=== PATIENT | female | born 1990 | race Native Hawaiian/Other Pacific Islander ===

== ENCOUNTER 2016-06-18 09:22 | Emergency (ER) | payer OTHER ==
[2016-06-18 09:26] VITALS: BMI 16.0
[2016-06-18 09:27] VITALS: BP 111/71; PULSE 90; RESP 16; TEMP 98.6; O2SAT 98
[2016-06-18] MEDS ORDERED: Tetracaine 0.5% Ophth (OR ONLY) OD ONE (09:55)
[2016-06-18] MEDS ORDERED: Fluorescein 1 mg Ophthalmic Strip OD ONE (09:55)
[2016-06-18] MEDS ORDERED: Tetracaine 0.5% Ophth (OR ONLY) ONE (10:02)
[2016-06-18] MEDS ORDERED: Fluorescein 1 mg Ophthalmic Strip ONE (10:02)
--- NOTE | 2016-06-18 10:21 | C.PDOC ---
History Of Present Illness 25 yr old female presents to the ER with complaints of bilateral eye irritation and redness since morning. Patient reports she wears contact lens. Patient states last night when she got home she was unable to get her contact lens out, flushed them with saline and water and went to sleep. Patient states when she woke up this morning she had pain to bilateral eyes. Patient denies vision changes or headache. Time Seen by Provider: 06/18/16 09:28 Chief Complaint (Nursing): ENT Problem History Per: Patient History/Exam Limitations: no limitations Onset/Duration Of Symptoms: Sudden Onset (since morning) Wears Contact Lens?: Yes Associated Symptoms: Pain Past Medical History Reviewed: Historical Data, Nursing Documentation, Vital Signs Vital Signs: Last Vital Signs Temp 98.6 F 06/18/16 09:26 Pulse 90 06/18/16 09:26 Resp 16 06/18/16 09:26 BP 111/71 06/18/16 09:26 Pulse Ox 98 06/18/16 10:23 Family History: States: No Known Family Hx - Social History Hx Alcohol Use: Yes Hx Substance Use: No - Immunization History Hx Tetanus Toxoid Vaccination: No Hx Influenza Vaccination: No (04/2015) Hx Pneumococcal Vaccination: No Review Of Systems Except As Marked, All Systems Reviewed And Found Negative. Eyes: Positive for: Pain (bilateral eyes ), Redness (bilateral eyes). Negative for: Vision Change Neurological: Negative for: Headache Physical Exam - Physical Exam Appears: Non-toxic, No Acute Distress Skin: Normal Color, Dry, No Rash Head: Atraumatic, Normacephalic Eye(s): bilateral: Other (No contact lens visulized. Scleral and conjunctiva are injected. Clear dischagre from irritation. ) Nose: Normal Oral Mucosa: Moist Chest: Symmetrical, No Tenderness Cardiovascular: Rhythm Regular, No Murmur Respiratory: Normal Breath Sounds, No Rales, No Rhonchi, No Stridor, No Wheezing Extremity: Normal ROM, No Swelling Neurological/Psych: Oriented x3, Normal Speech, Normal Motor ED Course And Treatment O2 Sat by Pulse Oximetry: 98 Disposition Counseled Patient/Family Regarding: Diagnosis, Need For Followup, Rx Given - Disposition Referrals: Nathan Gonzalez MD [Staff Provider] - Disposition: HOME/ ROUTINE Disposition Time: 10:20 Condition: GOOD Additional Instructions: FOLLOW UP WITH OPHTHAMOLOGY WITHIN 1 WEEK USE MEDICATIONS DIRECTED NO CONTACT LENS USE X 1 WEEK RETURN TO ER IF SYMPTOMS WORSEN Prescriptions: Naproxen [Naprosyn Tab] 375 mg PO BID PRN #15 tab PRN Reason: pain Moxifloxacin HCl [Vigamox] 2 drop OP Q2 #1 bottle Instructions: Corneal Abrasion (ED) Print Language: WELSH - POA Present On Arrival: None - Clinical Impression Clinical Impression: Corneal abrasion, Scleral injection - Scribe Statement The provider has reviewed the documentation as recorded by the Harmony Freedman Provider Attestation: All medical record entries made by the Harmony were at my direction and personally dictated by me. I have reviewed the chart and agree that the record accurately reflects my personal performance of the history, physical exam, medical decision making, and the department course for this patient. I have also personally directed, reviewed, and agree with the discharge instructions and disposition.
== END 2016-06-18 10:30 | disposition home or self-care (01) ==
LOC: C.ER 09:22
DX: H18.823 Corneal disorder due to contact lens, bilateral (principal)